=== PATIENT | male | born 1940 | race Caucasian/White ===

== ENCOUNTER 2017-07-16 19:14 | Emergency (ER) | payer OTHER, MEDICARE ==
[~2017-07-16 19:14] MED LIST: ALBUAER3 INH; ASPI-119 PO; CARV6.252 PO; FURO1TAB62 PO; FURO20 PO; HYDR25TA35 PO; HYDR25TA5 PO; IBUP1TAB7 PO; KCL10C PO; LANTUSP SQ; LEVO500T8 PO; LOSA100T PO; MECL12.574 PO; METF1000 PO; NOVOLOGSS SQ; POTA10CA PO; PRED5PAK PO; SIMV20TA PO; SYMB160A INH; TAMS5CAP PO
[2017-07-16 19:16] VITALS: BP 164/69; PULSE 78; RESP 16; TEMP 98.3; O2SAT 94
--- NOTE | 2017-07-16 20:28 | RADRPT ---
EXAM DATE/TIME: 07/16/2017 19:41 [facility] COMPARISON: No previous studies available for comparison. INDICATIONS : Foreign body, possible diabetic needle. MEDICAL HISTORY : Diabetes mellitus type I. SURGICAL HISTORY : None. ENCOUNTER: Initial ACUITY: 1 day PAIN SCORE: 0/10 LOCATION: Right abdomen. FINDINGS: Surgical clips are present over the pelvis. I see no other definite metallic density foreign object. If there specific concern regarding a retained insulin needle, coned and tangential imaging of the ex act region of interest may be beneficial. Intestinal gas pattern is nonspecific and benign. There are no suspicious calcific densities. There i s degenerative change present in the spine and hips. CONCLUSION: Negative. See above Gonzalez Patton MD on July 16, 2017 at 20:24 Board Certified Radiologist. This report was verified electronically.
--- NOTE | 2017-07-16 20:36 | PD ---
HPI Chief Complaint: Foreign Body Time Seen by Provider: 20:33 Travel History International Travel<30 days: No Contact w/Intl Traveler<30days: No Traveled to known affect area: No History of Present Illness HPI The patient is 77 year old male who presents to the [facility] emergency department with a history of apparently 2 hours ago attempting to inject his Lantus insulin. He reports that he noticed that the insulin would not inject, when he looked at the needle he realized that the needle had broken off. He is unsure whether the needle fell onto the ground or is in his abdomen. He denies having any abdominal pain. He reports that he has been diabetic for the last 10 years and has never had this happen previously. He denies any other acute complaints. Specifically on review of systems, he denies having any known recent fevers, worsening cough or congestion, neck pain, chest pain, worsening shortness of breath, vomiting, diarrhea, urinary symptoms, or neurologic symptoms. PFSH Past Medical History Narrative Medical The patient's past medical history is significant for diabetes mellitus and COPD , hypertension, coronary artery disease, hyperlipidemia, history of prostate cancer Cancer: Yes (PROSTATE CA) Cardiovascular Problems: Yes (MURMUR) Coronary Artery Disease: Yes Diabetes: Yes Diminished Hearing: Yes (TRIBE) Hypertension: Yes Past Surgical History Narrative Surgical The patient's past surgical history is significant for an appendectomy. Abdominal Surgery: Yes (COLONOSCOPY) Appendectomy: Yes Social History Alcohol Use: Yes (2 beers per day.) Tobacco Use: No Substance Use: No Allergies-Medications (Allergen,Severity, Reaction): Coded Allergies: No Known Allergies (Unverified , 04/08/17) Reported Meds & Prescriptions Reported Meds & Active Scripts Active Metformin (Metformin HCl) 1,000 Mg Tab 1,000 Mg PO BIDPC With meals Lasix (Furosemide) 20 Mg Tab 20 Mg PO BID Potassium Chloride ER (Potassium Chloride) 10 Meq Cap 10 Meq PO DAILY Carvedilol 6.25 Mg Tab 6.25 Mg PO BID Proair Hfa 8.5 GM Inh (Albuterol Sulfate) 90 Mcg/Act Aer 2 Puff INH Q4-6H PRN 108 mcg/actuation Levofloxacin 500 Mg Tablet 500 Mg PO DAILY Prednisone (21) 5 mg tab Dose Pack (Prednisone) 5 Mg Dspk 5 Mg PO DIRECTED Symbicort Inh (Budesonide/Formoterol Fumarate) 160-4.5 Mcg/Act Aero 1 Puff INH Q12HR Lasix 20 Mg Tab (Furosemide) 20 Mg Tab 20 Mg PO BID KCl 10 Meq Cap (Potassium Chloride) 10 Meq Capcr 10 Meq PO DAILY Reported Novolog Inj (Insulin Aspart) 100 Unit/Ml Inj 33 SQ DIRECTED Hydrochlorothiazide 25 Mg Tab 25 Mg PO DAILY Flomax (Tamsulosin HCl) 0.4 Mg Cap 0.4 Mg PO DAILY Hydralazine (Hydralazine HCl) 25 Mg Tab 25 Mg PO TID Take with a meal Simvastatin 20 Mg Tab 0.5 Tab PO HS Losartan (Losartan Potassium) 100 Mg Tab 100 Mg PO DAILY Meclizine (Meclizine HCl) 12.5 Mg Tab 12.5 Mg PO Q8HR PRN Flomax (Tamsulosin HCl) 0.4 Mg Cap 0.4 Mg PO DAILY Ibuprofen 800 Mg Tab 800 Mg PO TID Lantus (Insulin Glargine) 100 Units/Ml Inj 65 Units SQ BID Dasha Low Dose (Aspirin) 81 Mg Tab 81 Mg PO DAILY Losartan Potassium 100 MG (Losartan Potassium) 100 Mg Tab 100 Mg PO DAILY Review of Systems Except as stated in HPI: all other systems reviewed are Neg General / Constitutional: No: Fever Eyes: No: Visual changes HENT: No: Headaches Cardiovascular: No: Chest Pain or Discomfort Respiratory: No: Shortness of Breath Gastrointestinal: No: Abdominal Pain Genitourinary: No: Dysuria Musculoskeletal: No: Pain Skin: No Rash Neurologic: No: Weakness Psychiatric: No: Depression Endocrine: No: Polydipsia Hematologic/Lymphatic: No: Easy Bruising Physical Exam Narrative General: The patient is a well-developed well-nourished male in no acute distress. Head and Neck exam: Head is normocephalic atraumatic. Eyes: EOMI, pupils are equal round and reactive to light. Nose: Midline septum with pink mucous membranes Mouth: Dentition unremarkable. Moist mucus membranes. Posterior oropharynx is not erythematous. No tonsillar hypertrophy. Uvula midline. Airway patent. Neck: No palpable lymphadenopathy. No nuchal rigidity. No thyromegaly. Cardiovascular: Regular rate and rhythm with a 2/6 systolic murmur, no gallops or rubs. The patient reports having a history of heart murmur. Lungs: Clear to auscultation bilaterally. No wheezes, rhonchi, or rales. Abdomen: Soft, without tenderness to palpation in all 4 quadrants of the abdomen. No guarding, rebound, or rigidity. Normal bowel sounds are audible. No tenderness on palpation of McBurney's point. Negative Staples's sign. Extremities: No clubbing or cyanosis. The patient has 1+ nonpitting edema bilateral lower extremities with hyperpigmentation and scaling dry skin consistent with venous stasis changes. 2+ pulses in all 4 extremities. No calf tenderness on palpation. Back: No spinous process tenderness to palpation. No costovertebral angle tenderness to palpation. Neurologic Exam: Grossly nonfocal. Skin Exam: No rash noted. Intact skin that is warm and dry. Data Data Last Documented VS Vital Signs Date Time Temp Pulse Resp B/P (MAP) Pulse Ox O2 Delivery O2 Flow Rate FiO2 07/16/17 22:51 07/16/17 20:41 69 18 95 Room Air 07/16/17 19:16 98.3 Orders Orders Abdomen, Kub Only (07/16/17 ) Abdomen, Kub Only (07/16/17 21:11) Ed Discharge Order (07/16/17 22:48) [facility] Medical Decision Making Medical Screen Exam Complete: Yes Emergency Medical Condition: Yes Medical Record Reviewed: Yes Interpretation(s) Last Impressions Abdomen X-Ray 07/16/171 Signed Impressions: Service Date/Time: June 21:32 - CONCLUSION: Negative Gonzalez Patton MD Abdomen X-Ray 07/16/17 0000 Signed Impressions: Service Date/Time: June 19:41 - CONCLUSION: Negative. See above Gonzalez Patton MD Differential Diagnosis Foreign body in the subcutaneous tissues of the abdomen, versus broken needle that dropped onto the floor Narrative Course During the course of the patients emergency department visit, the patients history, examination, and differential diagnosis were reviewed with the patient. The patient was placed on a manager cardiac with oximetry and frequent blood pressure monitoring. The patient had an KUB done prior to arrival back in to his emergency department bed. This was ordered by the nurse practitioner that initially saw the patient in triage. The abdominal KUB was reportedly negative. Surgical clips were present over the pelvis, however no other definite metallic density or foreign body was noted. The reading radiologist, Dr. Patton recommended that if there is specific concern regarding retained insulin needle, conded and tangential imaging of the exact region of interest may be beneficial. Another x-ray was ordered with these guidelines. The patient reports that he attempted to do his injection and the right side of his abdomen. A more localized x-ray to the right lower quadrant where he reports that he did attempt to inject the insulin was done. No foreign body was noted. The patient will be discharged home. The patient is resting comfortably and feels better, is alert and in no distress. The patients results and examination findings were discussed with the patient. The repeat examination is unremarkable and benign. The history, exam, diagnostic testing, and current condition do not suggest any significant pathology to warrant further testing, continued ED treatment, admission, or surgical evaluation at this point. The vital signs have been stable. The patient does not have uncontrollable pain, intractable vomiting, or other significant symptoms. The patient's condition is stable and appropriate for discharge. The patient will pursue further outpatient evaluation with a primary care physician or other designated or consulting physician as indicated in the discharge instructions. The patient expressed understanding and was agreeable with this plan. Diagnosis Primary Impression: suspected foreign body ruled out after evaluation Referrals: Primary Care Physician as needed Patient Instructions: General Instructions Med/Other Pt SpecificInfo: No Change to Meds Disposition: 01 DISCHARGE HOME Condition: Stable Jessica Magana MD Jul 16, 2017 20:36
[2017-07-16 20:41] VITALS: BP 175/85; PULSE 69; RESP 18; O2SAT 95
--- NOTE | 2017-07-16 22:14 | RADRPT ---
EXAM DATE/TIME: 07/16/2017 21:32 [facility] COMPARISON: No previous studies available for comparison. INDICATIONS : Possible foreign body, diabetic needle MEDICAL HISTORY : Diabetes mellitus type II. SURGICAL HISTORY : None. ENCOUNTER: Subsequent ACUITY: 1 day PAIN SCORE: 0/10 LOCATION: Right Abdomen FINDINGS: Limited coned and tangential ray graft images of the right lower quadrant of the abdomen were obtaine d. I see no retained metallic density foreign object. CONCLUSION: Negative Gonzalez Patton MD on July 16, 2017 at 22:11 Board Certified Radiologist. This report was verified electronically.
== END 2017-07-16 22:55 | disposition home or self-care (01) ==
LOC: NEPE 19:14
DX: S30.851A Superficial foreign body of abdominal wall, initial encounter (principal); Z71.1 Person with feared health complaint in whom no diagnosis is made; E11.9 Type 2 diabetes mellitus without complications; E78.5 Hyperlipidemia, unspecified; I10 Essential (primary) hypertension; J44.9 Chronic obstructive pulmonary disease, unspecified; X58.XXXA Exposure to other specified factors, initial encounter
CPT/HCPCS: 74000; 99283